=== PATIENT | female | born 1965 | race Caucasian/White ===

== ENCOUNTER 2021-03-10 05:35 | Day surgery (SDC) | payer OTHER, SELFPAY ==
[~2021-03-10] VITALS: Ht 167.6 cm; Wt 72.6 kg
[2021-03-10 07:25] LABS: HCG,QUAL RESULT NEGATIVE (NEGATIVE)
[2021-03-10] MEDS ORDERED: PROPOFOL 200MG/ 20ML VIAL (DIPRIVAN) IV ONE (07:25)
[2021-03-10] MEDS ORDERED: CLINDAMYCIN PHOSPHATE 900 mg/50mL D5W IV ONE (07:25)
[2021-03-10] MEDS ORDERED: PHENYLEPHRINE HCL 10 MG/ML VIAL (NEOSYNEPHRINE) IV ONE (07:25)
[2021-03-10] MEDS ORDERED: fentaNYL CITRATE/PF 100 MCG/2 ML AMP IVP ONE (07:25)
[2021-03-10] MEDS ORDERED: GLYCOPYRROLATE 0.2 MG/ML VIAL IJ ONE (07:25)
[2021-03-10] MEDS ORDERED: WATER FOR IRRIGATION,STERILE 1,000 ML IRRIG.SOLN IR ONE (07:25)
[2021-03-10] MEDS ORDERED: ROCURONIUM BROMIDE 10 MG/ML (ZEMURON) IV ONE (07:25)
[2021-03-10] MEDS ORDERED: NS IRRIG SOLN 1000 ML IR ONE (07:25)
[2021-03-10] MEDS ORDERED: MIDAZOLAM HCL 5 MG/5 ML VIAL IVP ONE (07:25)
[2021-03-10] MEDS ORDERED: NS 1000 ML IV.SOLN IV ONE (07:25)
[2021-03-10] MEDS ORDERED: SEVOFLURANE 15 MIN GAS INH ONE (07:25)
[2021-03-10] MEDS ORDERED: LR 1,000 ML IV.SOLN IV ONE (07:25)
[2021-03-10] MEDS ORDERED: BUPIVACAINE /PF 0.5% 30 ML VIAL INJ ONE (07:25)
[2021-03-10] MEDS ORDERED: LR 1,000 ML IV SCH (07:45)
[2021-03-10] MEDS ORDERED: HYDROmorphone 2 MG/ML VIAL IVP PRN (07:45)
[2021-03-10] MEDS ORDERED: IBUPROFEN 800 MG TABLET PO PRN (07:45)
[2021-03-10] MEDS ORDERED: KETOROLAC TROMETHAMINE 30 MG VIAL IVP PRN (07:45)
[2021-03-10] MEDS ORDERED: ONDANSETRON HCL 4 MG/2 ML VIAL IVP PRN ×2 (07:45→08:30)
[2021-03-10] MEDS ORDERED: OXYCODONE/ACETAMINOPHEN 5-325 TABLET PO PRN (07:45)
[2021-03-10] MEDS ORDERED: fentaNYL CITRATE/PF 100 MCG/2 ML AMP IVP PRN ×2 (08:30)
[2021-03-10] MEDS ORDERED: METOCLOPRAMIDE HCL 10 MG/2 ML VIAL IVP PRN (08:30)
[2021-03-10] MEDS ORDERED: DOCUSATE SODIUM 100 MG CAPSULE PO SCH (09:00)
[2021-03-10 09:41] VITALS: BP_SYST 131
[2021-03-10] MEDS ORDERED: KETOROLAC TROMETHAMINE 30 MG VIAL ONE (10:30)
[2021-03-10] MEDS ORDERED: fentaNYL CITRATE/PF 100 MCG/2 ML AMP ONE (10:33)
[2021-03-10] MEDS: SIMETHICONE 80 MG TAB.CHEW PO PRN (19:14)
[2021-03-10] MEDS: OXYCODONE/ACETAMINOPHEN 5-325 TABLET PO PRN (19:15)
[2021-03-11] MEDS: SIMETHICONE 80 MG TAB.CHEW PO PRN (00:58)
[2021-03-11] MEDS: OXYCODONE/ACETAMINOPHEN 5-325 TABLET PO PRN (00:58)
== END 2021-03-11 10:00 | disposition home or self-care (01) ==
LOC: SMU 05:35 → SDS 05:35 → SPU 12:10 → SDS 03-11 10:00
PROVIDERS: ATTEND Obstetrics & Gynecology
DX: N83.291 Other ovarian cyst, right side (principal); D25.1 Intramural leiomyoma of uterus; N72 Inflammatory disease of cervix uteri; I10 Essential (primary) hypertension; E11.9 Type 2 diabetes mellitus without complications; J45.909 Unspecified asthma, uncomplicated; Z88.0 Allergy status to penicillin; Z79.899 Other long term (current) drug therapy; Z20.822 Contact with and (suspected) exposure to COVID-19
CPT/HCPCS: 36415; 58571; 64488; 82962; 84703; 86886; 86900; 86901; 88307; 88341; 88342; C1727; J2250; J2370; J2704; J3010; J3490 ×3; J7030; J7120; S2900; U0003; E0190; J1885